=== PATIENT | male | born 1960 | race Caucasian/White ===

== ENCOUNTER 2019-01-18 08:37 | Day surgery (SDC) | payer OTHER ==
[~2019-01-18 08:37] MED LIST: BUPIVACAINE HCL 0.75% INJ/PF (7.5 MG/1 ML) 10 ML SDV OD PRN; CHONDR SU A NA/HYALUR INTRAOC KIT (SURGICARE) ONE; EPINEPHRINE INJ/PF 1 MG/1 ML AMPULE ONE; FENTANYL CITRATE INJ/PF 100 MCG/2 ML AMPUL ONE; KETOROLAC TROMETHAMINE 0.45% 4 DROP/0.4 ML DROPERETTE OD PRN; LIDOCAINE 1%/PHENYLEPHRINE 1.5% 1 ML VIAL ONE; LIDOCAINE 4% INJ/PF (40 MG/ML) 5 ML AMPUL OD PRN; MIDAZOLAM 2 MG/2 ML INJ ONE; ONDANSETRON HCL INJ/PF 4 MG/2 ML SDV ONE; TRYPAN BLUE 0.06 % OPH SOLN 0.5 ML DISP.SYRIN ONE
[2019-01-18] MEDS: TETRACAINE HCL 0.5% OPH SOLN 4 ML OD PRN ×2 (09:21→09:46)
[2019-01-18] MEDS: CYCLOPENTOLATE 0.2%/PHENYLEPHRINE 1% OPH SOLN 2 ML OD PRN ×3 (09:21→09:38)
[2019-01-18] MEDS: BESIFLOXACIN HCL 0.6% OPH SUSP 5 ML BOTTLE OD PRN ×4 (09:22→10:21)
[2019-01-18] MEDS: TROPICAMIDE 1% OPH SOLN 15 ML OD PRN ×3 (09:22→09:38)
[2019-01-18] MEDS ORDERED: TRYPAN BLUE 0.06 % OPH SOLN 0.5 ML DISP.SYRIN ONE (10:07)
[2019-01-18] MEDS ORDERED: CHONDR SU A NA/HYALUR SOD 0.5 ML DISP.SYRIN ONE (10:12)
[2019-01-18] MEDS: DORZOLAMIDE HCL 2%/TIMOLOL MALEAT 0.5% OPH SOLN 10 ML OD PRN ×2 (10:21)
--- NOTE | 2019-01-18 10:36 | Operative Report ---
Operative Report-[facility] Operative Report: DATE OF SURGERY: 01/18/2019 PREOPERATIVE DIAGNOSIS: MATURE CATARACT, RIGHT EYE. POSTOPERATIVE DIAGNOSIS: MATURE CATARACT, RIGHT EYE. PROCEDURE PERFORMED: COMPLEX CATARACT EXTRACTION WITH INTRAOCULAR LENS, RIGHT EYE Intraocular Lens Model: SN 60 WF 22.5 Total Phaco Time: 45.00 CDE SURGEON: DYLAN ARRIETA MD ANESTHESIA: TOPICAL WITH MAC PLUS LIDOCAINE INDICATIONS FOR SURGERY: Mature cataract with no depth perception PROCEDURE: The patient was brought to the operating room and placed on operative table. Following Tetracaine drops, topical anesthesia was administered. This consisted of instrument wipe pledgets soaked in a solution of 4% Xylocaine mixed with 0.75% of Marcaine in a 1:2 ratio. A 2 x 1 cm pledget was placed in the superior fornix. A 1 x 1 cm pledget was placed in inferior fornix. The eye was patched out for 5 minutes. The patch was removed. The eye was sterilely prepped and draped in the usual manner. Lid speculum was placed in the eye. The pledgets were removed. 4-0 black silk sutures were placed around the superior and inferior rectus muscle to be used as traction. A conjunctival peritomy was performed at the 10 o'clock position. Hemostasis was obtained with bipolar cautery. A posterior limbal groove was created using a crescent knife and dissected anteriorly towards the cornea. A sharp point blade was used to create a paracentesis site at the 2 o'clock position. 0.1ml of phenyl/lidocaine solution was injected into the anterior chamber. Following the side-port inc ision, a syringe with air was injected into the eye, exchanging aqueous with air. Trypan blue dye was injected inferior to the air bubble. A 2.0 mm keratome was used to enter the anterior chamber through the groove. Viscoelastic was injected into the anterior chamber. An anterior capsulotomy was performed using Utrata forceps in the capsulorrhexis fashion. Hydrodissection and hydrodelineation were performed. Phacoemulsification was performed in the divide and conquer technique. Following this, the I/A unit was used to remove residual cortex. Viscoelastic was injected into the capsular bag. The intraocular lens was placed in the capsular bag. The I/A unit was used to remove residual viscoelastic. The wound was seen to be watertight under high and low pressure, and no sutures were placed. The intraocular lens was well centered. The pressure was adjusted in the eye to normal pressure. The 4-0 black silk sutures and lid speculum were removed. The eye was shielded after Besivance and Cosopt drops were placed. The patient tolerated the procedure well and was sent to recovery room in good condition.
== END 2019-01-18 10:54 | disposition home or self-care (01) ==
LOC: SC 08:37
PROVIDERS: ATTEND Ophthalmology
DX: H25.21 Age-related cataract, morgagnian type, right eye (principal); H57.03 Miosis; F17.210 Nicotine dependence, cigarettes, uncomplicated; Z96.1 Presence of intraocular lens
CPT/HCPCS: 66984; V2632; J2250; J3490 ×6; J0171; J3010; J2405; J2370

== ENCOUNTER 2019-06-02 07:31 | Emergency (ER) | payer SELFPAY ==
[2019-06-02 08:17] LABS: ABSOLUTE BASOPHILS # (AUTO) 0.1 10^3/uL (0.0-0.2); ABSOLUTE EOSINOPHILS # (AUTO) 0.1 10^3/uL (0.0-0.6); ABSOLUTE LYMPHOCYTES (AUTO) 1.8 10^3/uL (0.5-4.7); ABSOLUTE MONOCYTES (AUTO) 0.8 10^3/uL (0.1-1.4); ABSOLUTE NEUT (AUTO) 3.1 10^3/uL (1.7-8.2); BASOPHILS % (AUTO) 1.1 % (0-2); EOSINOPHILS % (AUTO) 2.2 % (0-6); HEMATOCRIT 40.2 % (37.9-51.0); HEMOGLOBIN 14.3 g/dL (13.5-17.0); LYMPHOCYTES % (AUTO) 30.9 % (13-45); MEAN CORPUSCULAR HEMOGLOBIN 34.6 pg (27.0-33.4); MEAN CORPUSCULAR HGB CONC 35.6 g/dL (32.0-36.0); MEAN CORPUSCULAR VOLUME 97 fl (80-97); MONOCYTES % (AUTO) 12.8 % (3-13); PLATELET COUNT 245 10^3/uL (150-450); RED BLOOD COUNT 4.15 10^6/uL (4.35-5.55); RED CELL DISTRIBUTION WIDTH 13.6 % (11.5-14.0); TOTAL CELLS COUNTED % (AUTO) 100 %; WHITE BLOOD COUNT 5.9 10^3/uL (4.0-10.5)
[2019-06-02 08:44] LABS: ALBUMIN 3.9 g/dL (3.5-5.0); ALKALINE PHOSPHATASE 91 U/L (38-126); ANION GAP 8 (5-19); ASPARTATE AMINO TRANSFERASE 31 U/L (17-59); BILIRUBIN,DIRECT 0.3 mg/dL (0.0-0.4); BILIRUBIN,TOTAL 0.4 mg/dL (0.2-1.3); BLOOD UREA NITROGEN 19 mg/dL (7-20); CALCIUM 9.3 mg/dL (8.4-10.2); CARBON DIOXIDE 29 mmol/L (22-30); CHLORIDE 103 mmol/L (98-107); CREATINE KINASE 67 U/L (55-170); GLUCOSE 77 mg/dL (75-110); POTASSIUM 4.3 mmol/L (3.6-5.0); TOTAL PROTEIN 7.9 g/dL (6.3-8.2)
[2019-06-02 08:55] LABS: CREATINE KINASE MB 1.49 ng/mL (<4.55)
[2019-06-02 08:57] LABS: TROPONIN I < 0.012 ng/mL
[2019-06-02] MEDS ORDERED: ASPIRIN 325 MG TABLET PO ONE (09:44)
[2019-06-02 10:42] LABS: APPEARANCE,URINE CLOUDY; BILIRUBIN,URINE NEGATIVE (NEGATIVE); COLOR,URINE YELLOW; GLUCOSE, URINE NEGATIVE (NEGATIVE); KETONES,URINE NEGATIVE (NEGATIVE); LEUKOCYTE ESTERASE,URINE NEGATIVE (NEGATIVE); NITRITE,URINE NEGATIVE (NEGATIVE); PROTEIN,URINE 30 mg/dL (NEGATIVE); URINE SPECIFIC GRAVITY 1.024; UROBILINOGEN,URINE NEGATIVE mg/dL (<2.0)
--- NOTE | 2019-06-02 11:26 | RADIOLOGY REPORT (SQ) ---
EXAM DESCRIPTION: CHEST 2 VIEWS COMPLETED DATE/TIME: 06/02/2019 11:16 am REASON FOR STUDY: pain COMPARISON: None. EXAM PARAMETERS: NUMBER OF VIEWS: two views TECHNIQUE: Digital Frontal and Lateral radiographic views of the chest acquired. RADIATION DOSE: NA LIMITATIONS: none FINDINGS: LUNGS AND PLEURA: No opacities, masses or pneumothorax. No pleural effusion. MEDIASTINUM AND HILAR STRUCTURES: No masses or contour abnormalities. HEART AND VASCULAR STRUCTURES: Heart normal size. No evidence for failure. BONES: No acute findings. HARDWARE: None in the chest. OTHER: No other significant finding. IMPRESSION: NO ACUTE RADIOGRAPHIC FINDING IN THE CHEST. TECHNICAL DOCUMENTATION: JOB ID: [id number] 2010 [employer]- All Rights Reserved Reading location - IP/workstation name: [email or web address]
--- NOTE | 2019-06-02 13:33 | ER Document Report ---
ED Cardiac - General Chief Complaint: Chest Pain Stated Complaint: CHEST PAIN Time Seen by Provider: 06/02/19 09:17 Mode of Arrival: Ambulatory Information source: Patient TRAVEL OUTSIDE OF THE [place] IN LAST 30 DAYS: No - HPI Notes: Patient presents with chest pain. He states that this started several days ago and has been intermittent. It is on the left side of his chest and also in the left upper back. He states this morning it woke him up from sleep. He denies any shortness of breath. He is not had any nausea. The pain does radiate over into the left shoulder. Nothing makes it better or worse. He states he has no previous history of coronary artery disease. He states he last had a stress test about 10 years ago and it was normal. He denies any recent cough cold or congestion. He states he does do a lot of heavy lifting at work. - Related Data Allergies/Adverse Reactions: No Known Allergies Allergy (Verified 06/02/19 07:52) Past Medical History - General Information source: Patient, Relative - Social History Smoking Status: Current Every Day Smoker Chew tobacco use (# tins/day): No Frequency of alcohol use: daily Drug Abuse: None Family History: Reviewed & Not Pertinent Patient has suicidal ideation: No Patient has homicidal ideation: No - Past Medical History Cardiac Medical History: Denies: Hx Heart Attack, Hx Hypertension Pulmonary Medical History: Denies: Hx Asthma Neurological Medical History: Denies: Hx Cerebrovascular Accident, Hx Seizures GI Medical History: Denies: Hx Hepatitis, Hx Hiatal Hernia, Hx Ulcer Infectious Medical History: Denies: Hx Hepatitis Past Surgical History: Denies: Hx Open Heart Surgery, Hx Pacemaker Review of Systems - Review of Systems Constitutional: denies: Chills, Fever Cardiovascular: Chest pain. denies: Palpitations Respiratory: denies: Cough, Short of breath -: Yes All other systems reviewed and negative Physical Exam - Vital signs Vitals: Temp Pulse Resp BP Pulse Ox 98.8 F 91 18 164/93 H 98 06/02/19 07:44 06/02/19 07:44 06/02/19 07:44 06/02/19 07:44 06/02/19 07:44 Interpretation: Normal, Hypertensive - General General appearance: Appears well, Alert - HEENT Head: Normocephalic, Atraumatic Eyes: Normal Pupils: PERRL - Respiratory Respiratory status: No respiratory distress Chest status: Nontender Breath sounds: Normal Chest palpation: Normal - Cardiovascular Rhythm: Regular Heart sounds: Normal auscultation Murmur: No - Abdominal Inspection: Normal Distension: No distension Bowel sounds: Normal Tenderness: Nontender Organomegaly: No organomegaly - Back Back: Normal, Nontender - Extremities General upper extremity: Normal inspection, Nontender, Normal color, Normal ROM, Normal temperature General lower extremity: Normal inspection, Nontender, Normal color, Normal ROM, Normal temperature, Normal weight bearing. No: Rigoberto's sign - Neurological Neuro grossly intact: Yes Cognition: Normal Orientation: AAOx4 [place] Coma Scale Eye Opening: Spontaneous [place] Coma Scale Verbal: Oriented [place] Coma Scale Motor: Obeys Commands [place] Coma Scale Total: 15 Speech: Normal Motor strength normal: LUE, RUE, LLE, RLE Sensory: Normal - Psychological Associated symptoms: Normal affect, Normal mood - Skin Skin Temperature: Warm Skin Moisture: Dry Skin Color: Normal Course - Re-evaluation Re-evalutation: 06/02/19 13:30 Patient has been essentially chest pain-free here. His heart score is 2. I th ink he is low risk and acceptable for discharge. I am going to have him follow- up with Dr. Silvia Robison to have an outpatient cardiac stress test. EKG and laboratories are unremarkable as is x-ray. - Vital Signs Vital signs: Temp Pulse Resp BP Pulse Ox 98.8 F 91 24 H 152/98 H 99 06/02/19 07:44 06/02/19 07:44 06/02/19 11:00 06/02/19 10:01 06/02/19 11:00 - Laboratory Result Diagrams: 06/02/19 08:08 06/02/19 08:08 Laboratory results interpreted by me: 06/02/19 06/02/19 08:08 10:25 RBC 4.15 L MCH 34.6 H Urine Protein 30 H - Diagnostic Test Radiology reviewed: Image reviewed, Reports reviewed - EKG Interpretation by Me EKG shows normal: Sinus rhythm Rate: Normal - 99 Rhythm: NSR Como/QRS: No: Right axis deviation, Left axis deviation Discharge - Discharge Clinical Impression: Uncontrolled hypertension Chest pain Qualifiers: Chest pain type: unspecified Qualified Code(s): R07.9 - Chest pain, unspecified Condition: Stable Disposition: HOME, SELF-CARE Instructions: Chest Pain of Unclear Cause ([facility]), High Blood Pressure ([facility]) Additional Instructions: Please call Dr. Robison as soon as possible to arrange stress testing. Please call [facility] as soon as possible to arrange a primary care visit and to monitor your blood pressure. Prescriptions: Amlodipine Besylate [Norvasc 5 mg Tablet] 5 mg PO DAILY #30 tablet Forms: Return to Work Referrals: SILVIA ROBISON MD [ACTIVE STAFF] - Follow up in 3-5 days [facility] [Provider Group] - Follow up tomorrow
[2019-06-02 14:06] VITALS: BP 137/85
--- NOTE | 2019-06-02 22:38 | EKG REPORT ---
SEVERITY:- NORMAL ECG - SINUS RHYTHM : Confirmed by: Carlos Mcgowan 02-Jun-2019 22:37:45
== END 2019-06-02 14:06 | disposition home or self-care (01) ==
LOC: ER 07:31
DX: R07.9 Chest pain, unspecified (principal); I10 Essential (primary) hypertension; M54.9 Dorsalgia, unspecified; F17.200 Nicotine dependence, unspecified, uncomplicated
CPT/HCPCS: 36415; 71046; 80053; 81001; 82550; 82553; 84484; 85025; 93005; 93010; 99285